=== PATIENT | male | born 1960 | race African-American/Black ===

== ENCOUNTER → 2016-12-21 | Day surgery (SDC) | payer OTHER ==
[~2016-12-21] MED LIST: ATEN1TAB3 PO; HYDR-971 PO; IV RINGERS,LACTATED 1000ML 1,000 ML IV SCH; PROPOFOL 40 ML IV ONE; SILD100T PO; TERB250T PO
--- NOTE | 2016-12-21 09:09 | PDOC1 ---
HISTORY & PHYSICAL H&P Saad De La Garza [id number] 1960 12/01/2016 03:00 PM 04/04 [facility] [employer] [facility] OUR PATIENTS COME FIRST [address] [place] [address] Ph. [phone] Patient: Saad De La Garza Date of : 1960 Date: 12/01/2016 3:00 PM Visit Type: Consult This 56 year old male presents for Screening colonoscopy. History of Present Illness: 1. Screening colonoscopy No prior screening. Denies risk factors. Pertinent negatives include abdominal pain, change in bowel habits, change in stool caliber, constipation, decreased appetite, diarrhea, melena, nausea, rectal bleeding, vomiting, weight gain and weight loss. Additional information: No family history of colon cancer , No family history of Crohn's/colitis and No NSAID/ASA use. INTAKE COMMENTS: Intake Comments: Nurse Note: the pt is here today to schedule a screening colonoscopy. PROBLEM LIST: No active problems PAST MEDICAL/SURGICAL HISTORY (Detailed) Disease/disorder Onset Date Management Date Comments knee pain ,loose bodies 1997 sunday knee repair ,loose bodies Medications (Active): Started Medication Directions Instruction Stopped 10/21/2016 atenolol 50 mg-chlorthalidone 25 mg tablet take 1 tablet by oral route every day 11/18/2016 Lamisil 250 mg tablet take 1 tablet by oral route every day fungus nails 11/18/2016 Viagra 100 mg tablet take 1 tablet by oral route every day as needed approximately 1 hour before sexual activity generic is ok Allergies: Ingredient Reaction Medication Name Comment NO KNOWN ALLERGIES REVIEW OF SYSTEMS System Neg/Pos Details Constitutional Negative Chills, fever, malaise, weight gain and weight loss. ENMT Negative Sore throat. Eyes Negative Double vision. Respiratory Negative Dyspnea and wheezing. Cardio Negative Chest pain and irregular heartbeat/palpitations. GI Positive See HPI. GI Negative Abdominal pain, change in bowel habits, change in stool caliber, constipation, decreased appetite, diarrhea, melena, nausea, see HPI, rectal bleeding and vomiting. Negative Dysuria and hematuria. Endocrine Negative Cold intolerance and heat intolerance. Psych Negative Anxiety. Integumentary Negative Hives and rash. MS Negative Joint pain. Teddy/Lymph Negative Easy bleeding and easy bruising. Allergic/Immuno Negative Food allergies. VITAL SIGNS Time BP mm/Hg Pulse /min Resp /min Temp F Ht ft Ht in Ht cm Wt lb Wt kg BMI kg/ m2 BSA m2 O2 Sat% 4:20 PM 138/84 82 98.0 5.0 10.00 177.80 295.00 133.810 42.33 98 Time Measured by 4:20 PM Maris Parker PHYSICAL EXAM: Exam Findings Details Constitutional Normal Well developed. Eyes Normal Conjunctiva - Right: Normal, Left: Normal. Sclera - Right: Normal, Left: Normal. Nasopharynx Normal Lips/teeth/gums - Normal. Neck Exam Normal Inspection - Normal. Thyroid gland - Normal. Respiratory Normal Inspection - Normal. Auscultation - Normal. Cardiovascular Normal Regular rate and rhythm. No murmurs, gallops, or rubs. Vascular Normal Pulses - Carotids: Normal, Femoral: Normal, Dorsalis pedis: Normal. Abdomen Normal Inspection - Normal. Anterior palpation - No guarding. No abdominal tenderness. No hepatic enlargement. No splenic enlargement. No hernia. No ascites. Skin Normal Inspection - Normal. Extremity Normal No edema. Psychiatric * Oriented to time, place, person and situation. Psychiatric Normal Appropriate mood and effect. Assessment/Plan # Detail Type Description 1. Assessment Encounter for screening colonoscopy (Z12.11). [place] [facility] [place] Further diagnostic evaluations ordered today include(s) EGD to be performed today. He is to schedule a follow-up visit with Nahum Cody MD upon completion of work-up Electronically signed by: Nahum Cody MD 12/01/2016 08:46 PM Document generated by: Nahum Cody 12/01/2016 08:46 PM Orestes Brian MD, Family Practice; Sterling Marion MD Internal Medicine; Dmitry Fair MD, Internal Medicine; Hossein Cody MD Internal Medicine; Nahum Cody MD, Gastroenterology; Troy Horton MD, Rheumatology, S. Meet Calvin, Physical Medicine/Nicolasaab Erika Up APRN ------ 12/21/16 Patient seen and examined. No change in H&P. NAHUM CODY MD Dec 21, 2016 09:09
[2016-12-21 10:03] VITALS: BP 105/68
--- NOTE | 2016-12-22 16:07 | PATHOLOGY ---
PATHOLOGY REPORT * * * * * * * * FINAL DIAGNOSIS: Colon biopsy, sigmoid polyp: - Minute segment of superficial colonic epithelium showing hyperplastic changes and mucoid material containing degenerated cells. COMMENT: Sections of the sigmoid colon biopsy reveal a minute segment of superficial colonic epithelium showing hyperplastic changes and mucoid material containing degenerated cells. If the segment of colonic epithelium is plastic products sales representative of the polyp, then the findings are consistent with a hyperplastic polyp. There is no evidence of malignancy. (JPM:rlm; 12/22/2016) REPORT ELECTRONICALLY SIGNED BY: Isidro Brown M.D. DATE/TIME: 12/22/2016 16:06 * * * * * * * * GROSS PATHOLOGY: Received in formalin labeled "Saad Lopez, sigmoid polyp," are a few minute segments of hudson soft tissue measuring less than 0.1 cm in maximum dimension admixed with a large amount of clear, mucoid material. The specimen is submitted entirely in cassette A1. The specimen is very small and may not survive processing. (JPM; 12/21/16) INITIAL CPT CODE(S): A; 95163 Professional services performed by [facility] [place] [address] Technical services performed by [facility] at [address] [place] [address], [facility] [address] [address]. SPECIMEN(S) RECEIVED: A.Sigmoid polyp CLINICAL HISTORY: Screening PATIENT: SAAD LOPEZ /AGE: 7 1960 (Age: 56) PATIENT #: [id number] ALT CASE #: SPECIMEN COLLECTION DATE: 12/21/2016 SPECIMEN RECEIVED DATE: 12/21/2016 [facility] - [address] [place] [address] - PHONE: [phone] * * * END OF REPORT * * *
== END | disposition home or self-care (01) ==
LOC: ENDOS 08:32
PROVIDERS: ATTEND Internal Medicine Gastroenterology
DX: Z12.11 Encounter for screening for malignant neoplasm of colon (principal); D12.5 Benign neoplasm of sigmoid colon; I10 Essential (primary) hypertension; M17.0 Bilateral primary osteoarthritis of knee; Z87.39 Personal history of other diseases of the musculoskeletal system and connective tissue; Z72.89 Other problems related to lifestyle
CPT/HCPCS: 45385; 88305; J2704

== ENCOUNTER 2017-03-25 10:18 | Emergency (ER) | payer OTHER ==
[~2017-03-25] VITALS: Ht 177.8 cm; Wt 130.3 kg
[~2017-03-25 10:18] MED LIST changes: -IV RINGERS,LACTATED 1000ML 1,000 ML IV SCH; -PROPOFOL 40 ML IV ONE
[2017-03-25] MEDS ORDERED: CIPR250T30 PO (10:44)
[2017-03-25 11:00] VITALS: BP 130/82
--- NOTE | 2017-03-28 15:33 | PHYS DOC ---
Past Medical History Past Medical History: Hypertension Past Surgical History: No Surgical History Alcohol Use: Rarely Drug Use: None Adult General Chief Complaint Chief Complaint: DIARRHEA HPI HPI Patient is a 56 year old male who presents with diarrhea and cramping x 4 days. The patient states he ate at a [employer] while traveling in [place] and has had diarrhea and abdominal cramping several times since. He believes he developed food poisoning from there. He denies abdominal pain, fever or other illness. He has not used OTC remedies for this condition. Review of Systems Review of Systems Constitutional: Denies fever or chills [] Respiratory: Denies cough or shortness of breath [] Cardiovascular: No additional information not addressed in HPI [] GI: See HPI : Denies dysuria or hematuria [] Musculoskeletal: Denies back pain or joint pain [] Integument: Denies rash or skin lesions [] Neurologic: Denies headache, focal weakness or sensory changes [] Endocrine: Denies polyuria or polydipsia [] All other systems were reviewed and found to be within normal limits, except as documented in this note. Allergies Allergies Allergies Coded Allergies Type Severity Reaction Last Updated Verified No Known Drug Allergies 12/21/16 No Physical Exam Physical Exam Constitutional: Well developed, well nourished, no acute distress, non-toxic appearance. [] HENT: Normocephalic, oropharynx moist Cardiovascular:Heart rate regular rhythm, no murmur [] Lungs & Thorax: Bilateral breath sounds clear to auscultation [] Abdomen: Bowel sounds normal, soft, no tenderness, no masses, no pulsatile masses. [] Skin: Warm, dry, no erythema, no rash. [] Neurologic: Alert and oriented X 3, normal motor function, normal sensory function, no focal deficits noted. [] Psychologic: Affect normal, judgement normal, mood normal. [] Current Patient Data Vital Signs Vital Signs Date Time Temp Pulse Resp B/P (MAP) Pulse Ox O2 Delivery O2 Flow Rate FiO2 03/25/17 11:00 80 16 130/82 (98) 98 Room Air 03/25/17 10:23 98.1 98.1 EKG EKG [] Radiology/Procedures Radiology/Procedures [] Course & Med Decision Making Course & Med Decision Making Pertinent Labs and Imaging studies reviewed. (See chart for details) []1. Diarrhea You have been discharged with an antibiotic. Please take this as directed. Increase fluid intake. If worsening please return to the ED or follow up with your PCP if not improving in 3 days. Rohan Disclaimer Rohan Disclaimer This electronic medical record was generated, in whole or in part, using a voice recognition dictation system. Departure Departure Impression: Primary Impression: Diarrhea Disposition: HOME, SELF-CARE Condition: STABLE Patient Instructions: Diarrhea Additional Instructions: Follow-up with your primary care provider in 3 days if not improving. If worsening with abdominal pain, fever or worsening diarrhea please return to the ED immediately. Scripts Ciprofloxacin Hcl (CIPRO) 250 Mg Tablet 1 TAB PO BID, #10 TAB Prov: KAVITA PEDROZA APRN 03/25/17 KAVITA PEDROZA APRN Mar 28, 2017 15:33
== END 2017-03-25 11:01 | disposition home or self-care (01) ==
LOC: ER 10:18
DX: R19.7 Diarrhea, unspecified (principal); R10.9 Unspecified abdominal pain; I10 Essential (primary) hypertension
CPT/HCPCS: 99283